=== PATIENT | female | born 1995 | race Caucasian/White ===

== ENCOUNTER 2017-03-12 06:14 | Emergency (ER) | payer MEDICAID, OTHER ==
[~2017-03-12] VITALS: Ht 152.4 cm; Wt 55.5 kg
[~2017-03-12 06:14] MED LIST: [UNRECOGNIZED DRUG - REMARK] PO; [UNRECOGNIZED DRUG - REMARK] PO
[2017-03-12 06:16] VITALS: Ht 152.4 cm; Wt 55.5 kg
--- NOTE | 2017-03-12 06:35 | ERA ---
ER Documentation Chief Complaint Date/Time DATE: 03/12/17 TIME: 06:30 Chief Complaint abd pain, n/v x 1 day HPI 22-year-old male presenting with her mother complaining of abdominal pain 1 day. Patient has decreased appetite and nausea. Patient denies migration of pain, vomiting, diarrhea, constipation, dysuria, hematuria, blood in stool, , sexual activity, headache, changes in vision or hearing. Patient does not take any medications at this time to relieve the pain and denies any alleviating or aggravating factors. ROS All systems reviewed and are negative except as per history of present illness. Medications Home Meds Active Scripts Ondansetron (Ondansetron Odt) 4 Mg Tab.rapdis, 4 MG PO Q6H Y for NAUSEA AND/OR VOMITING, #10 TAB Prov:DURAN POLLACK PA-C 03/12/17 Reported Medications [Prilosec, Unk Dose] No Conflict Check, PO DAILY 10/06/13 [Prozac, Unk Dose] No Conflict Check, PO DAILY 10/06/13 Allergies Allergies: Coded Allergies: No Known Allergy (Unverified , 10/06/13) PMhx/Soc History of Surgery: No Anesthesia Reaction: No Hx Neurological Disorder: No Hx Respiratory Disorders: No Hx Cardiac Disorders: No Hx Psychiatric Problems: Yes (Depression, OCD) Hx Miscellaneous Medical Probl: No Hx Alcohol Use: No Hx Substance Use: No Hx Tobacco Use: No Physical Exam Vitals Vital Signs Date Time Temp Pulse Resp B/P Pulse Ox O2 Delivery O2 Flow Rate FiO2 03/12/17 06:16 97.4 93 17 131/64 98 Physical Exam Const: Well-appearing quiet 22-year-old female presenting with her mother sitting up in bed and seems happy. Head: Atraumatic Eyes: Normal Conjunctiva. Extraocular movements intact bilaterally. PERRLA. ENT: Normal External Ears, Nose and Mouth. Neck: Full range of motion..~ No meningismus. No lymphadenopathy. Resp: Clear to auscultation bilaterally Cardio: Regular rate and rhythm, no murmurs Abd: Soft, non tender, non distended. Normal bowel sounds. No tenderness to McBurney's point. Negative Rovsing sign/obturator sign/psoas sign. Tympany is within normal limits and reproduces no pain in all 4 quadrants. Skin: No petechiae or rashes Back: No midline or flank tenderness Ext: No cyanosis, or edema Neur: Awake and alert Psych: Normal Mood and Affect Results 24 hrs Laboratory Tests Test 03/12/17 06:40 Bedside Urine pH (LAB) 6.0 Bedside Urine Protein (LAB) Negative Bedside Urine Glucose (UA) Negative Bedside Urine Ketones (LAB) Negative Bedside Urine Blood Negative Bedside Urine Nitrite (LAB) Negative Bedside Urine Leukocyte Esterase (L Negative Procedures/MDM Patient is a healthy-appearing 22-year-old female in no acute distress presenting with her mother for abdominal pain for the past 1 day. Patient states that she is nauseous and has a decreased appetite due to the nausea. Patient's physical exam was unremarkable including a negative McBurney's point tenderness, Rovsing sign, obturator sign, psoas sign. At this time is very low suspicion for appendicitis. Most likely differential diagnosis is a viral gastroenteritis. Will rule out with test and get a urine dip as well to rule out infectious pathologies of the urinary tract. Departure Diagnosis: Primary Impression: Abdominal pain Qualified Code: R10.84 - Generalized abdominal pain Additional Impressions: Gastroenteritis Viral gastroenteritis due to [place]-like agent Viral gastroenteritis Condition: Stable Additional Instructions: Follow up with your PCP within the next 1-3 days for a more thorough evaluation and a possible referral to a specialist. Return the the emergency department immediately if symptoms worsen or change. If you have any questions regarding medications, ask your pharmacist or us before you leave. If any adverse reactions occur while taking your medications, discontinue the treatment and return to the emergency department immediately. Take your medications as directed, and complete the entire course of treatment. DURAN POLLACK PA-C Mar 12, 2017 06:35
[2017-03-12 06:39] LABS: URINE BLOOD (Dip) POC Negative (NEGATIVE)
[2017-03-12] MEDS ORDERED: ONDA4TAB14 PO (07:06)
== END 2017-03-12 07:18 | disposition home or self-care (01) ==
LOC: FTE 06:14
DX: R10.84 Generalized abdominal pain (principal); A08.4 Viral intestinal infection, unspecified; R11.2 Nausea with vomiting, unspecified
CPT/HCPCS: 81003; 99283

== ENCOUNTER 2017-07-28 02:49 | Emergency (ER) | payer OTHER ==
[~2017-07-28] VITALS: Ht 160 cm; Wt 55.0 kg
[~2017-07-28 02:49] MED LIST changes: +ONDA4TAB14 PO
[2017-07-28 02:52] VITALS: Ht 160 cm; Wt 55.0 kg
[2017-07-28] MEDS ORDERED: LORA1TAB PO (07:18)
--- NOTE | 2017-07-28 07:21 | ERD ---
ER Documentation Chief Complaint Date/Time DATE: 07/28/17 TIME: 07:19 Chief Complaint anxiety started at 0100, pt reports hx of anxiety HPI 22-year-old female with existing history of anxiety disorder presents the emergency department stating that she is having increasing anxiety symptoms. She reports no inciting event and no significant abuse or other concerns at home. However, despite being compliant with her medications, she continues to have ongoing anxiety symptoms. She reports no shortness of breath or palpitations but just feels anxious. She denies suicidal or homicidal thoughts. She denies auditory or visual hallucinations. ROS All systems reviewed and are negative except as per history of present illness. Medications Home Meds Active Scripts Lorazepam* (Lorazepam*) 1 Mg Tablet, 1 MG PO Q8H Y for ANXIETY, #10 TAB Prov:PAVAN HAYNES 07/28/17 Ondansetron (Ondansetron Odt) 4 Mg Tab.rapdis, 4 MG PO Q6H Y for NAUSEA AND/OR VOMITING, #10 TAB Prov:DURAN POLLACK PA-C 03/12/17 Reported Medications [Prilosec, Unk Dose] No Conflict Check, PO DAILY 10/06/13 [Prozac, Unk Dose] No Conflict Check, PO DAILY 10/06/13 Allergies Allergies: Coded Allergies: No Known Allergy (Unverified , 10/06/13) PMhx/Soc History of Surgery: No Anesthesia Reaction: No Hx Neurological Disorder: No Hx Respiratory Disorders: No Hx Cardiac Disorders: No Hx Psychiatric Problems: Yes (Depression, OCD) Hx Miscellaneous Medical Probl: No Hx Alcohol Use: No Hx Substance Use: No Hx Tobacco Use: No FmHx Noncontributory for chief complaint with supportive mother at bedside Physical Exam Vitals Vital Signs Date Time Temp Pulse Resp B/P Pulse Ox O2 Delivery O2 Flow Rate FiO2 07/28/17 02:52 98.3 90 24 129/60 97 Physical Exam General: well developed, well nourished, in no distress. Neuro: Normal speech, gait, balance Psych: Patient is awake, alert, oriented. She is expressing anxiety symptoms. She denies auditory or visual hallucinations, suicidal or homicidal ideations. She has normal insight and normal judgment. Results 24 hrs Current Medications Medications (Trade) Dose Ordered Sig/Farhan Route PRN Reason Start Time Stop Time Status Last Admin Dose Admin Lorazepam (Ativan) 1 mg ONCE ONCE PO 07/28/17 07:30 07/28/17 07:31 Procedures/MDM Patient was taken to a room, seen and examined Medical decision making: This is a 22-year-old with an existing history of underlying psychiatric disease who presents to the emergency department with symptoms consistent with her anxiety disorder. At this time, she does not meet criteria for 5150 and does not appear to be a danger to herself or others. She is clinically well at this time will be treated supportively as an outpatient. Departure Diagnosis: Primary Impression: Anxiety Condition: Stable Patient Instructions: Anxiety Reaction Referrals: JOYA SINGH MD (PCP) Additional Instructions: Please see your psychiatrist and discuss your medications. Return for any problems or concerns PAVAN HAYNES Jul 28, 2017 07:21
[2017-07-28] MEDS ORDERED: LORAZEPAM 1 MG TAB PO ONE (07:30)
[2017-07-28 07:32] VITALS: BP 118/58; PULSE 80; RESP 20; TEMP 98.4
== END 2017-07-28 07:32 | disposition home or self-care (01) ==
LOC: FTE 02:49
DX: F41.9 Anxiety disorder, unspecified (principal)
CPT/HCPCS: Z7502; Z7610; 99283

== ENCOUNTER 2017-09-17 02:33 | Emergency (ER) | payer OTHER ==
[~2017-09-17] VITALS: Ht 157.5 cm; Wt 56.0 kg
[~2017-09-17 02:33] MED LIST changes: +LORA1TAB PO
[2017-09-17 02:39] VITALS: Ht 157.5 cm; Wt 56.0 kg
[2017-09-17] MEDS ORDERED: LORAZEPAM 1 MG TAB PO ONE (04:00)
--- NOTE | 2017-09-17 05:00 | ERD ---
ER Documentation Chief Complaint Chief Complaint anxiety, hx- anxiety reaction, denies si/hi HPI This is a 21-year-old female presents the emergency department today stating that she has having some heart palpitations and feeling anxious. States she has been able to fall asleep. States he has a history of OCD and depression for which she takes Prozac, Abilify. Denies any chest pain, fevers or chills. ROS All systems reviewed and are negative except as per history of present illness. Medications Home Meds Active Scripts Lorazepam* (Lorazepam*) 1 Mg Tablet, 1 MG PO Q8H Y for ANXIETY, #10 TAB Prov:PAVAN HAYNES 07/28/17 Ondansetron (Ondansetron Odt) 4 Mg Tab.rapdis, 4 MG PO Q6H Y for NAUSEA AND/OR VOMITING, #10 TAB Prov:DURAN POLLACK PA-C 03/12/17 Reported Medications [Prilosec, Unk Dose] No Conflict Check, PO DAILY 10/06/13 [Prozac, Unk Dose] No Conflict Check, PO DAILY 10/06/13 Allergies Allergies: Coded Allergies: No Known Allergy (Unverified , 10/06/13) PMhx/Soc Medical and Surgical Hx: pt denies Surgical Hx History of Surgery: No Anesthesia Reaction: No Hx Neurological Disorder: No Hx Respiratory Disorders: No Hx Cardiac Disorders: No Hx Psychiatric Problems: Yes (Depression, OCD) Hx Miscellaneous Medical Probl: No Hx Alcohol Use: No Hx Substance Use: No Hx Tobacco Use: No Physical Exam Vitals Vital Signs Date Time Temp Pulse Resp B/P Pulse Ox O2 Delivery O2 Flow Rate FiO2 09/17/17 05:10 71 18 117/84 99 Room Air 09/17/17 02:39 98.3 88 20 128/68 99 Physical Exam Const: pleasant, NAD Head: Atraumatic Eyes: Normal Conjunctiva ENT: Normal External Ears, Nose and Mouth. Neck: Full range of motion..~ No meningismus. Resp: Clear to auscultation bilaterally Cardio: Regular rate and rhythm, no murmurs Abd: Soft, non tender, non distended. Normal bowel sounds Skin: No petechiae or rashes Back: No midline or flank tenderness Ext: No cyanosis, or edema Neur: Awake and alert Psych: Normal Mood and Affect Results 24 hrs Current Medications Medications (Trade) Dose Ordered Sig/Farhan Route PRN Reason Start Time Stop Time Status Last Admin Dose Admin Lorazepam (Ativan) 1 mg ONCE ONCE PO 09/17/17 04:00 09/17/17 04:01 DC 09/17/17 04:06 Procedures/MDM This 22-year-old female presents the emergency department today complaining of heart palpitations and feeling anxious. Patient does have a history of anxiety , OCD and depression. Patient is afebrile and otherwise well-appearing. She has no chest pain I do not feel that she requires laboratory workup or imaging at this time. Low suspicion for acute NC, PE, pericarditis, pneumothorax, pleural effusion. I did obtain an EKG EKG read and interpreted by Dr. Butler. Rate [address] elevation. No QT prolongation. Normal sinus rhythm. She was given 1 mg of Ativan and reported feeling better. Patient did indicate that last time she was seen here she was given a prescription for lorazepam but did not fill that because she wanted to follow- up with her primary care doctor and counselor to determine if it was okay for her to take that medication. She does have an appointment October 21 for follow-up. I have encouraged her to try to make an appointment sooner. She is instructed to continue taking her usual medications as prescribed. Patient symptoms at this time is consistent with anxiety. At this time the patient is stable for discharge and outpatient management. Patient should follow up with their PCP in the next 1-2 days. They may return to the emergency department sooner for any persistent or worsening of symptoms. Patient understood and agreed with the plan. Departure Diagnosis: Primary Impression: Anxiety Condition: LEANDRO Ravi PA-C Sep 17, 2017 05:00
[2017-09-17 05:10] VITALS: BP 117/84; PULSE 71; RESP 18
== END 2017-09-17 05:10 | disposition home or self-care (01) ==
LOC: FTE 02:33
DX: F41.9 Anxiety disorder, unspecified (principal); R00.2 Palpitations
CPT/HCPCS: 93005; Z7502; Z7610

== ENCOUNTER 2018-08-03 00:48 | Emergency (ER) | END 2018-08-03 03:44 | disposition home or self-care (01) ==

== ENCOUNTER 2018-12-23 20:05 | Emergency (ER) | payer OTHER ==
[~2018-12-23] VITALS: Wt 62.2 kg
[~2018-12-23 20:05] MED LIST changes: +ALPR1TAB2 PO
[2018-12-23] MEDS ORDERED: LIDOCAINE/MYLANTA 40 ML BTL PO ONE (21:00)
[2018-12-23] MEDS ORDERED: ONDANSETRON (ODT) 4 MG TAB ODT STA (21:00)
--- NOTE | 2018-12-23 21:32 | ERD ---
ER Documentation Chief Complaint Chief Complaint AP, NAUSEA X'S 4 DAYS HPI 23-year-old female presents here to emergency department for complaints of epigastric pain that started 4 days ago, is worse after eating, describes the pain as burning pain 4/10 scale, not better or worse with anything. Patient denies any dizziness, denies any numbness or tingling. Patient denies any fever or chills. Patient did not take any medications to help with symptoms ROS All systems reviewed and are negative except as per history of present illness. Medications Home Meds Active Scripts Alprazolam* (Xanax*) 1 Mg Tab, 1 MG PO Q8H PRN for ANXIETY, #5 TAB Prov:LEIGHTON ALEX NP 08/03/18 Lorazepam* (Lorazepam*) 1 Mg Tablet, 1 MG PO Q8H PRN for ANXIETY, #10 TAB Prov:PAVAN HAYNES 07/28/17 Ondansetron (Ondansetron Odt) 4 Mg Tab.rapdis, 4 MG PO Q6H PRN for NAUSEA AND/OR VOMITING, #10 TAB Prov:DURAN POLLACK PA-C 03/12/17 Reported Medications [Prilosec, Unk Dose] No Conflict Check, PO DAILY 10/06/13 [Prozac, Unk Dose] No Conflict Check, PO DAILY 10/06/13 Allergies Allergies: Coded Allergies: No Known Allergy (Unverified , 10/06/13) PMhx/Soc History of Surgery: No Anesthesia Reaction: No Hx Neurological Disorder: No Hx Respiratory Disorders: No Hx Cardiac Disorders: No Hx Psychiatric Problems: Yes (Depression, OCD) Hx Miscellaneous Medical Probl: No Hx Alcohol Use: No Hx Substance Use: No Hx Tobacco Use: No Smoking Status: Never smoker FmHx Family History: No diabetes, No coronary disease, No other Physical Exam Vitals Vital Signs Date Temp Pulse Resp B/P (MAP) Pulse Ox O2 O2 Flow FiO2 Time Delivery Rate 12/23/18 98.0 115 18 136/70 100 20:08 (92) Physical Exam GENERAL: The patient is well developed and appropriate for usual state of health, in no apparent distress. CHEST: Clear to auscultation bilaterally. There are no rales, wheezes or rhonchi. HEART: Regular rate and rhythm. No murmurs, clicks, rubs or gallops. No S3 or S4. ABDOMEN: Soft, nontender and nondistended. Good bowel sounds. No rebound or guarding. No gross peritonitis. No gross organomegaly or masses. No Presley sign or McBurney point tenderness. BACK: No midline or flank tenderness. EXTREMITIES: Equal pulses bilaterally. There is no peripheral clubbing, cyanosis or edema. No focal swelling or erythema. Full range of motion. Grossly neurovascularly intact. NEURO: Alert and oriented. Cranial nerves 2-12 intact. Motor strength in all 4 extremities with 5/5 strength. Sensation grossly intact. Normal speech and gait. SKIN: There is no apparent rash or petechia. The skin is warm and dry. HEMATOLOGIC AND LYMPHATIC: There is no evidence of excessive bruising or lymphedema. No gross cervical, axillary, or inguinal lymphadenopathy. Result Diagram: 12/23/18211912/23/182119 Results 24 hrs Laboratory Tests Test 12/23/18 21:20 White Blood Count 8.5 10^3/ul Red Blood Count 4.48 10^6/ul Hemoglobin 13.6 g/dl Hematocrit 39.8 % Mean Corpuscular Volume 88.8 fl Mean Corpuscular Hemoglobin 30.4 pg Mean Corpuscular Hemoglobin Concent 34.2 g/dl Red Cell Distribution Width 13.0 % Platelet Count 223 10^3/UL Mean Platelet Volume 11.4 fl Immature Granulocytes % 0.400 % Neutrophils % 70.1 % Lymphocytes % 21.6 % Monocytes % 6.1 % Eosinophils % 1.4 % Basophils % 0.4 % Nucleated Red Blood Cells % 0.0 /100WBC Immature Granulocytes # 0.030 10^3/ul Neutrophils # 6.0 10^3/ul Lymphocytes # 1.8 10^3/ul Monocytes # 0.5 10^3/ul Eosinophils # 0.1 10^3/ul Basophils # 0.0 10^3/ul Nucleated Red Blood Cells # 0.0 10^3/ul Urine Color YELLOW Urine Clarity CLOUDY Urine pH 5.0 Urine Specific Brohard 1.019 Urine Ketones TRACE mg/dL Urine Nitrite NEGATIVE mg/dL Urine Bilirubin NEGATIVE mg/dL Urine Urobilinogen 1+ mg/dL Urine Leukocyte Esterase 3+ Carlos/ul Urine Microscopic RBC 12 /HPF Urine Microscopic WBC 9 /HPF Urine Squamous Epithelial Cells FEW /HPF Urine Amorphous Crystals FEW /HPF Urine Bacteria FEW /HPF Urine Mucus FEW /HPF Urine Hemoglobin NEGATIVE mg/dL Urine Glucose NEGATIVE mg/dL Urine Total Protein NEGATIVE mg/dl Sodium Level 140 mmol/L Potassium Level 4.1 mmol/L Chloride Level 104 mmol/L Carbon Dioxide Level 24 mmol/L Anion Gap 12 Blood Urea Nitrogen 11 mg/dl Creatinine 0.66 mg/dl Est Glomerular Filtrat Rate mL/min > 60 mL/min Glucose Level 99 mg/dl Calcium Level 9.6 mg/dl Total Bilirubin 0.5 mg/dl Direct Bilirubin 0.00 mg/dl Indirect Bilirubin 0.5 mg/dl Aspartate Amino Transf (AST/SGOT) 19 IU/L Alanine Aminotransferase (ALT/SGPT) 12 IU/L Alkaline Phosphatase 92 IU/L Total Protein 7.8 g/dl Albumin 4.6 g/dl Globulin 3.20 g/dl Albumin/Globulin Ratio 1.43 Lipase 37 U/L Current Medications Medications Dose Sig/Farhan Start Time Status Last (Trade) Ordered Route PRN Stop Time Admin Dose Reason Admin 40 ml ONCE ONCE 12/23/18 DC 12/23/18 Miscellaneous PO 21:00 12/23/18 21:20 Medication 21:01 (Gi Cocktail (2)) Ondansetron 4 mg ONCE STAT 12/23/18 DC 12/23/18 HCl (Zofran ODT 21:00 12/23/18 21:20 Odt) 21:01 Zofran and GI cocktail was Given Here in the Emergency Department. Procedures/MDM Medical Decision Making: Symptoms likely consistent with gastritis, also incidental finding of urinary tract infection there is low suspicion for abdominal emergencies at this time. Patients abdominal exam is normal at this time. Patients radiology exam does not show any abdominal emergencies at this time. There is low suspicion for appendicitis, cholecystitis, abdominal aortic aneurysms or peritonitis at this time. There is low suspicion for sepsis. Patient appears well and is hemodynamically stable. Disposition: Home. Condition: Stable Prescription Mylanta, ranitidine, Keflex Instructions: Patient is advised to take medications as prescribed. Patient is advised to rest, increase fluid intake and do brat diet for next 1-2 days and progress as tolerated. Patient is advised that if symptoms are worse, severe abdominal pain, uncontrolled vomiting, high fever, severe flank pain, worst signs and symptoms, to return to the emergency department immediately. Otherwise, patient can follow up with primary care doctor in 5-7 days. Disclaimer: Inadvertent spelling and grammatical errors are likely due to EHR/dictation software use and do not reflect on the overall quality of patient care. Also, please note that the electronic time recorded on this note does not necessarily reflect the actual time of the patient encounter. Departure Diagnosis: Primary Impression: UTI (urinary tract infection) Urinary tract infection type: acute cystitis Hematuria presence: without hematuria Qualified Codes: N30.00 - Acute cystitis without hematuria Additional Impression: Epigastric abdominal pain Condition: Stable Patient Instructions: Epigastric Pain (Uncertain Cause), Understanding Urinary Tract Infections (UTIs) Additional Instructions: Patient is advised to take medications as prescribed. Patient is advised to rest, increase fluid intake and do brat diet for next 1-2 days and progress as tolerated. Patient is advised that if symptoms are worse, severe abdominal pain, uncontrolled vomiting, high fever, severe flank pain, worst signs and symptoms, to return to the emergency department immediately. Otherwise, patient can follow up with primary care doctor in 5-7 days. LEIGHTON ALEX NP Dec 23, 2018 21:32
[2018-12-23] MEDS ORDERED: MAG-19 PO (22:32)
[2018-12-23] MEDS ORDERED: RANI150T35 PO (22:32)
[2018-12-23] MEDS ORDERED: CEPH-443 PO (22:32)
[2018-12-23 22:48] VITALS: BP 147/65; PULSE 87; RESP 18
== END 2018-12-23 22:50 | disposition home or self-care (01) ==
LOC: FTE 20:05
DX: N30.00 Acute cystitis without hematuria (principal)
CPT/HCPCS: 36415; 76705; 80053; 81001; 83690; 85025; Z7502; Z7610

== ENCOUNTER 2019-02-01 09:11 | Emergency (ER) | payer MEDICARE, OTHER ==
[~2019-02-01] VITALS: Ht 152.4 cm; Wt 60.8 kg
[~2019-02-01 09:11] MED LIST changes: +CEPH-443 PO; +MAG-19 PO; +RANI150T35 PO
[2019-02-01 09:12] VITALS: RESP 18; Ht 152.4 cm; Wt 60.8 kg
[2019-02-01] MEDS ORDERED: KETOROLAC 30 MG INJ IV STA (09:38)
[2019-02-01] MEDS ORDERED: ONDANSETRON 4 MG INJ IV STA (09:38)
[2019-02-01] MEDS ORDERED: SOD CHLORIDE 0.9% 1,000 ML IV STA (09:38)
[2019-02-01] MEDS ORDERED: DIPHENHYDRAMINE 50 MG INJ IV STA (09:38)
[2019-02-01] MEDS ORDERED: NAPR-985 PO (11:03)
[2019-02-01] MEDS ORDERED: SUMA25TA34 PO (11:03)
[2019-02-01 11:50] VITALS: BP 127/66; PULSE 111
--- NOTE | 2019-02-01 12:47 | ERD ---
ER Documentation Chief Complaint Chief Complaint head pain x 4 days HPI 23-year-old female presenting with headache times 4 days. Patient states that she has auras and squiggly lines in her vision that come and go. She took Advil yesterday but no medication today. No vomiting. No visual changes. Patient has nausea. Denies medical problems. NKDA. Surgical history denies. Social history denies. LNMP 1 week ago. ROS All systems reviewed and are negative except as per history of present illness. Medications Home Meds Active Scripts Naproxen* (Naprosyn*) 500 Mg Tablet, 500 MG PO BID PRN for PAIN AND/OR INFLAMMATION, #30 TAB Prov:KYUNG GUPTA PA-C 02/01/19 Sumatriptan Succinate* (Imitrex*) 25 Mg Tablet, 25 MG PO BID PRN for MIGRAINE HEADACHE, #30 TAB May repeat after 2 hours if needed; MAX 200 mg/24 hours Prov:KYUNG GUPTA PA-C 02/01/19 Magaldrate/Simethicone* (Mylanta*) 355 Ml Susp, 30 ML PO QID PRN for GASTROINTESTINAL UPSET, #1 BOTTLE Prov:LEIGHTON ALEX NP 12/23/18 Ranitidine Hcl* (Zantac*) 150 Mg Tablet, 150 MG PO BID PRN for EPIGASTRIC PAIN, #30 TAB Prov:LEIGHTON ALEX NP 12/23/18 Cephalexin* (Keflex*) 500 Mg Capsule, 500 MG PO QID for 7 Days, CAP Prov:LEIGHTON ALEX NP 12/23/18 Alprazolam* (Xanax*) 1 Mg Tab, 1 MG PO Q8H PRN for ANXIETY, #5 TAB Prov:LEIGHTON ALEX NP 08/03/18 Lorazepam* (Lorazepam*) 1 Mg Tablet, 1 MG PO Q8H PRN for ANXIETY, #10 TAB Prov:PAVAN HAYNES 07/28/17 Ondansetron (Ondansetron Odt) 4 Mg Tab.rapdis, 4 MG PO Q6H PRN for NAUSEA AND/OR VOMITING, #10 TAB Prov:DURAN POLLACK PA-C 03/12/17 Reported Medications [Prilosec, Unk Dose] No Conflict Check, PO DAILY 10/06/13 [Prozac, Unk Dose] No Conflict Check, PO DAILY 10/06/13 Allergies Allergies: Coded Allergies: No Known Allergy (Unverified , 10/06/13) PMhx/Soc Medical and Surgical Hx: pt denies Surgical Hx History of Surgery: No Anesthesia Reaction: No Hx Neurological Disorder: No Hx Respiratory Disorders: No Hx Cardiac Disorders: No Hx Psychiatric Problems: Yes (Depression, OCD) Hx Miscellaneous Medical Probl: No Hx Alcohol Use: No Hx Substance Use: No Hx Tobacco Use: No FmHx Family History: No diabetes, No coronary disease, No other Physical Exam Vitals Vital Signs Date Temp Pulse Resp B/P (MAP) Pulse Ox O2 O2 Flow FiO2 Time Delivery Rate 02/01/19 111 127/66 99 Room Air 11:50 (86) 02/01/19 97.6 88 18 134/75 99 09:12 (94) Physical Exam GENERAL: The patient is well-appearing, well-nourished, in no acute distress HEENT: Atraumatic. Conjunctivae are pink. Pupils equal, round, and reactive to light. There is no scleral icterus. Tympanic membranes clear bilaterally. Oropharynx clear. NECK: C-spine is soft and supple. There is no meningismus. There is no cervica l lymphadenopathy. CHEST: Clear to auscultation bilaterally. There are no rales, wheezes or rhonchi. HEART: Regular rate and rhythm. No murmurs, clicks, rubs or gallops. NEUROLOGIC: Alert and oriented. Cranial nerves II through XII intact. Motor st rength in all 4 extremities with 5 out of 5 strength. Sensation grossly intact. Normal speech and gait. Results 24 hrs Laboratory Tests Test 02/01/19 10:08 02/01/19 10:11 Bedside Urine pH (LAB) 6.0 Bedside Urine Protein (LAB) Negative Bedside Urine Glucose (UA) Negative Bedside Urine Ketones (LAB) Negative Bedside Urine Blood Negative Bedside Urine Nitrite (LAB) Negative Bedside Urine Leukocyte Esterase (L 1+ POC Beta HCG, Qualitative NEGATIVE Current Medications Medications Dose Sig/Farhan Start Time Status Last (Trade) Ordered Route PRN Stop Time Admin Dose Reason Admin Sodium 1,000 ml @ Q1H STAT 02/01/19 DC 02/01/19 Chloride 1,000 mls/hr IV 09:38 10:13 02/01/19 10:37 Ondansetron 4 mg ONCE STAT 02/01/19 DC 02/01/19 HCl (Zofran IV 09:38 10:13 Inj) 02/01/19 09:39 Ketorolac 30 mg ONCE STAT 02/01/19 DC 02/01/19 Tromethamine IV 09:38 10:14 (Toradol) 02/01/19 09:39 25 mg ONCE STAT 02/01/19 DC 02/01/19 Diphenhydrami IV 09:38 10:13 ne HCl 02/01/19 09:39 (Benadryl) Procedures/MDM ER course: 1 L normal saline given the ED. Benadryl, Toradol and Zofran given ED. MDM: 23-year-old female presenting with headache. Patient symptoms improved with treatment in the ER. I have low suspicion for intracranial hemorrhage or neuro deficit. I do not feel that CT scan was indicated today's visit. I have low suspicion for meningitis or sepsis. Patient is discharged with supportive medications. Patient is told if symptoms change or worsen to return immediately to the ER. All questions answered at discharge Departure Diagnosis: Primary Impression: Headache Condition: Stable Patient Instructions: Self-Care for Headaches Referrals: JOYA SINGH MD (PCP) Additional Instructions: FOLLOW UP WITH YOUR PRIMARY CARE PHYSICIAN TOMORROW.Return to this facility if you are not improving as expected. KYUNG GUPTA PA-C Feb 01, 2019 12:47
== END 2019-02-01 11:51 | disposition home or self-care (01) ==
LOC: FTE 09:11
DX: R51 Headache (principal); R11.0 Nausea
CPT/HCPCS: 81003; 81025; 96361; 96374; 96375; 99284; J1200; J1885; J2405; J7030

== ENCOUNTER 2019-07-06 19:50 | Emergency (ER) | payer MEDICARE, OTHER ==
[~2019-07-06] VITALS: Ht 154.9 cm; Wt 65.0 kg
[~2019-07-06 19:50] MED LIST changes: +FAMO-96 PO; +IBUP-1542 PO; +NAPR-985 PO; +SUMA25TA34 PO
[2019-07-06 19:54] VITALS: Ht 154.9 cm; Wt 65.0 kg
[2019-07-06] MEDS ORDERED: LIDOCAINE/MYLANTA 40 ML BTL PO STA (21:15)
[2019-07-06] MEDS ORDERED: KETOROLAC 30 MG INJ IM STA (21:15)
[2019-07-06] MEDS ORDERED: FAMOTIDINE 20 MG TAB PO STA (21:15)
--- NOTE | 2019-07-06 21:23 | ERD ---
ER Documentation Chief Complaint Chief Complaint AP AND N/V X WEDNESDAY. HPI 24-year-old female with no reported past medical or surgical history presents with complaint of epigastric abdominal pain, nausea and vomiting since Wednesday. Patient states she is having intermittent epigastric abdominal pain without radiation that has worsened and associated with several episodes of nonbilious nonbloody vomiting. Patient states pain made worse with movement. Pain not worsened or improved by eating or drinking. She otherwise denies diarrhea, fevers, chills, vaginal bleeding or discharge, dysuria or urinary frequency, recent illness. Last menstrual period reported around June 22 of this month. Patient has tried Zantac and Mylanta with only mild improvement in symptoms. ROS All systems reviewed and are negative except as per history of present illness. Medications Home Meds Active Scripts Ibuprofen* (Motrin*) 600 Mg Tab, 600 MG PO Q6, #30 TAB Prov:YE BYRNE PA-C 07/06/19 Famotidine* (Pepcid*) 20 Mg Tablet, 20 MG PO BID for 4 Days, TAB Prov:YE BYRNE PA-C 07/06/19 Ondansetron (Ondansetron Odt) 4 Mg Tab.rapdis, 4 MG PO Q6H PRN for NAUSEA AND/OR VOMITING, #10 TAB Prov:YE BYRNE PA-C 07/06/19 Naproxen* (Naprosyn*) 500 Mg Tablet, 500 MG PO BID PRN for PAIN AND/OR INFLAMMATION, #30 TAB Prov:KYUNG GUPTA PA-C 02/01/19 Sumatriptan Succinate* (Imitrex*) 25 Mg Tablet, 25 MG PO BID PRN for MIGRAINE HEADACHE, #30 TAB May repeat after 2 hours if needed; MAX 200 mg/24 hours Prov:KYUNG GUPTA PA-C 02/01/19 Magaldrate/Simethicone* (Mylanta*) 355 Ml Susp, 30 ML PO QID PRN for GASTROINTESTINAL UPSET, #1 BOTTLE Prov:LEIGHTON ALEX NP 12/23/18 Ranitidine Hcl* (Zantac*) 150 Mg Tablet, 150 MG PO BID PRN for EPIGASTRIC PAIN, #30 TAB Prov:LEIGHTON ALEX NP 12/23/18 Cephalexin* (Keflex*) 500 Mg Capsule, 500 MG PO QID for 7 Days, CAP Prov:ABILEIGHTON AWS ARCHITECT 12/23/18 Alprazolam* (Xanax*) 1 Mg Tab, 1 MG PO Q8H PRN for ANXIETY, #5 TAB Prov:ABILEIGHTON DONNELLY Cristy. AWS ARCHITECT 08/03/18 Lorazepam* (Lorazepam*) 1 Mg Tablet, 1 MG PO Q8H PRN for ANXIETY, #10 TAB Prov:PAVAN HAYENS 07/28/17 Ondansetron (Ondansetron Odt) 4 Mg Tab.rapdis, 4 MG PO Q6H PRN for NAUSEA AND/OR VOMITING, #10 TAB Prov:DURAN POLLACK PA-C 03/12/17 Reported Medications [Prilosec, Unk Dose] No Conflict Check, PO DAILY 10/06/13 [Prozac, Unk Dose] No Conflict Check, PO DAILY 10/06/13 Allergies Allergies: Coded Allergies: No Known Allergy (Unverified , 10/06/13) PMhx/Soc Medical and Surgical Hx: pt denies Surgical Hx History of Surgery: No Anesthesia Reaction: No Hx Neurological Disorder: No Hx Respiratory Disorders: No Hx Cardiac Disorders: No Hx Psychiatric Problems: Yes (Depression, OCD) Hx Miscellaneous Medical Probl: No Hx Alcohol Use: No Hx Substance Use: No Hx Tobacco Use: No Smoking Status: Never smoker FmHx Family History: No diabetes, No coronary disease, No other Physical Exam Vitals Vital Signs Date Temp Pulse Resp B/P (MAP) Pulse Ox O2 O2 Flow FiO2 Time Delivery Rate 07/06/19 98.0 77 18 128/79 Room Air 23:04 (95) 07/06/19 98.4 119 20 134/66 96 19:54 (88) Physical Exam I have reviewed the triage vital signs. Const: Well nourished, well developed, appears stated age Eyes: PERRL, no conjunctival injection HENT: NCAT, Neck supple without meningismus CV: RRR, Warm, well-perfused extremities RESP: CTAB, Unlabored respiratory effort GI: soft, tender to deep palpation to epigastrium, no lateral tenderness, no rebound or guarding, no flank pain, non-distended, no masses MSK: No gross deformities appreciated Skin: Warm, dry. No rashes Neuro: grossly non focal Psych: Appropriate mood and affect. Result Diagram: 07/06/19215507/06/192155 Results 24 hrs Laboratory Tests Test 07/06/19 21:10 07/06/19 21:56 POC Beta HCG, Qualitative NEGATIVE White Blood Count 11.3 10^3/ul Red Blood Count 4.65 10^6/ul Hemoglobin 14.1 g/dl Hematocrit 41.4 % Mean Corpuscular Volume 89.0 fl Mean Corpuscular Hemoglobin 30.3 pg Mean Corpuscular Hemoglobin Concent 34.1 g/dl Red Cell Distribution Width 13.2 % Platelet Count 286 10^3/UL Mean Platelet Volume 11.3 fl Immature Granulocytes % 0.400 % Neutrophils % 81.4 % Lymphocytes % 13.1 % Monocytes % 4.3 % Eosinophils % 0.3 % Basophils % 0.5 % Nucleated Red Blood Cells % 0.0 /100WBC Immature Granulocytes # 0.040 10^3/ul Neutrophils # 9.2 10^3/ul Lymphocytes # 1.5 10^3/ul Monocytes # 0.5 10^3/ul Eosinophils # 0.0 10^3/ul Basophils # 0.1 10^3/ul Nucleated Red Blood Cells # 0.0 10^3/ul Urine Color YELLOW Urine Clarity CLEAR Urine pH 5.0 Urine Specific [place] 1.027 Urine Ketones TRACE mg/dL Urine Nitrite NEGATIVE mg/dL Urine Bilirubin NEGATIVE mg/dL Urine Urobilinogen NEGATIVE mg/dL Urine Leukocyte Esterase NEGATIVE Carlos/ul Urine Hemoglobin NEGATIVE mg/dL Urine Glucose NEGATIVE mg/dL Urine Total Protein NEGATIVE mg/dl Sodium Level 140 mmol/L Potassium Level 3.9 mmol/L Chloride Level 102 mmol/L Carbon Dioxide Level 28 mmol/L Anion Gap 10 Blood Urea Nitrogen 13 mg/dl Creatinine 0.60 mg/dl Est Glomerular Filtrat Rate mL/min > 60 mL/min Glucose Level 97 mg/dl Calcium Level 9.8 mg/dl Total Bilirubin 0.7 mg/dl Direct Bilirubin 0.00 mg/dl Indirect Bilirubin 0.7 mg/dl Aspartate Amino Transf (AST/SGOT) 17 IU/L Alanine Aminotransferase (ALT/SGPT) 18 IU/L Alkaline Phosphatase 95 IU/L Total Protein 8.1 g/dl Albumin 4.7 g/dl Globulin 3.40 g/dl Albumin/Globulin Ratio 1.38 Lipase 19 U/L Beta HCG, Quantitative < 2.4 mIU/ml Current Medications Medications Dose Sig/Farhan Start Time Status Last (Trade) Ordered Route PRN Stop Time Admin Dose Reason Admin Famotidine 20 mg ONCE STAT 07/06/19 DC 07/06/19 (Pepcid) PO 21:15 22:14 07/06/19 21:18 40 ml ONCE STAT 07/06/19 DC 07/06/19 Miscellaneous PO 21:15 22:14 Medication 07/06/19 21:18 (Gi Cocktail (2)) Ketorolac 30 mg ONCE STAT 07/06/19 DC 07/06/19 Tromethamine IM 21:15 22:14 (Toradol) 07/06/19 21:18 Procedures/MDM 24 yo non- woman presenting with abdominal pain. Given patients test is negative, highly doubt ectopic . Considered causes of female-specific abdominal pain unrelated to (e.g., pelvic inflammatory disease with or without tubo-ovarian abscess, [id number], etc.). Also considered causes of abdominal pain that are not gender-specific (e.g., appendicitis, volvulus, small bowel obstruction, mesenteric adenitis, acute cholecystitis/choledocholithiasis and other biliary pathology, etc.). Patient well-appearing with normal vital signs. Laboratory testing and imaging here reviewed and normal. Patient given strict return precautions for worsening pain, inability to eat/drink, fevers (temperature over 100.4F), or other concerns. Patient instructed to follow up with their primary doctor and is agreeable; all questions were answered. ED course: Ultrasound gallbladder unremarkable UA, unremarkable Labs unremarkable with lipase within normal limits We will treat with symptomatic care and Rx, strict return precautions planed in detail DISPOSITION PLAN: We discussed follow up with the patient's primary care doctor within 24 to 48 hours. Patient counseled regarding my diagnostic impression and care plan. Prior to discharge all questions answered. Pt agrees with treatment plan and understands strict return precautions. Precautionary instructions provided including instructions to return to the ER if not improving or for any worsening or changing symptoms or concerns. Disclaimer: Inadvertent spelling and grammatical errors are likely due to EHR/dictation software use and do not reflect on the overall quality of patient care. Also, please note that the electronic time recorded on this note does not necessarily reflect the actual time of the patient encounter. Departure Diagnosis: Primary Impression: Abdominal pain Condition: Stable YE BYRNE PA-C Jul 06, 2019 21:23
[2019-07-06 23:04] VITALS: BP 128/79; PULSE 77; RESP 18
== END 2019-07-06 23:06 | disposition home or self-care (01) ==
LOC: FTE 19:50
DX: R10.13 Epigastric pain (principal); R11.2 Nausea with vomiting, unspecified
CPT/HCPCS: 36415; 76705; 80053; 81003; 81025; 83690; 84702; 85025; 96372; 99285; J1885

== ENCOUNTER 2019-09-10 01:17 | Emergency (ER) | payer MEDICARE, OTHER ==
[~2019-09-10] VITALS: Ht 152.4 cm; Wt 51.9 kg
[~2019-09-10 01:17] MED LIST changes: +RANI-535 PO; -RANI150T35 PO; +SULF1TAB31 PO
[2019-09-10 01:28] VITALS: Ht 152.4 cm; Wt 51.9 kg
[2019-09-10] MEDS ORDERED: LIDOCAINE 1% (MDV) 20 ML INJ SC ONE (04:00)
[2019-09-10 05:24] VITALS: BP 128/71; PULSE 109; RESP 20
== END 2019-09-10 05:26 | disposition home or self-care (01) ==
LOC: FTE 01:17
DX: N75.0 Cyst of Bartholin's gland (principal)